=== PATIENT | female | born 1975 | race Caucasian/White ===

== ENCOUNTER 2019-08-29 20:25 | Emergency (ER) | payer MEDICAID, MEDICARE ==
[~2019-08-29] VITALS: Ht 175.3 cm; Wt 107.0 kg
[2019-08-29 20:33] VITALS: BP 134/94
[2019-08-29] MEDS ORDERED: HYDROcodone/acetaminophen 5mg/325mg tablet PO ONE (21:05)
[2019-08-29] MEDS ORDERED: ondansetron 4mg rapidly disintigrating tab PO ONE (21:05)
[2019-08-29] MEDS ORDERED: ketorolac trometh inj. 60 MG/2 ML VIAL IM ONE (21:20)
== END 2019-08-29 21:47 | disposition home or self-care (01) ==
LOC: ER 20:26
DX: M25.561 Pain in right knee (principal); Z98.0 Intestinal bypass and anastomosis status; Z98.890 Other specified postprocedural states; Z88.6 Allergy status to analgesic agent
CPT/HCPCS: 29505; 73564; 96372; 99283; J1885

== ENCOUNTER 2020-06-09 20:28 | Inpatient (IN) | payer MEDICAID ==
[~2020-06-09] VITALS: Ht 175.3 cm; Wt 101.8 kg
[2020-06-09] MEDS ORDERED: CefTRIAXone 2gm/D5W 50ml BAG 50 ML IV ONE (21:40)
[2020-06-09] MEDS ORDERED: ondansetron/PF 4mg/2ml inj IV ONE (21:40)
[2020-06-09] MEDS ORDERED: normal saline 1000ML IV soln IVB ONE (21:40)
[2020-06-09] MEDS ORDERED: vancomycin/NS 1 GM ADD-VANTAGE 250 ML IV ONE (21:40)
[2020-06-09] MEDS ORDERED: iohexol 300mg/ml 100ml inj. ONE (21:52)
[2020-06-09 22:14] LABS: BASOPHILS # (AUTO) 0.1 X10'3 (0-0.2); BASOPHILS % (AUTO) 0.8 % (0-1); EOSINOPHILS # (AUTO) 0.1 X10'3 (0-0.9); EOSINOPHILS % (AUTO) 1.8 % (0-6); HEMATOCRIT 34.5 % (35.0-45.0); HEMOGLOBIN 11.3 g/dl (12.0-16.0); LYMPHOCYTES # (AUTO) 1.4 X10'3 (1.1-4.8); LYMPHOCYTES % (AUTO) 18.8 % (21-51); MEAN CORPUSCULAR HEMOGLOBIN 28.4 PG (27.0-31.0); MEAN CORPUSCULAR HGB CONC 32.7 g/dL (33.0-36.5); MEAN CORPUSCULAR VOLUME 86.9 FL (78-98); MEAN PLATELET VOLUME 8.5 FL (7.4-10.4); MONOCYTES # (AUTO) 0.5 X10'3 (0-0.9); MONOCYTES % (AUTO) 6.4 % (2-12); NEUTROPHILS # (AUTO) 5.5 X10'3 (1.8-7.7); NEUTROPHILS % (AUTO) 72.2 % (42-75); PLATELET COUNT 264 X10'3 (140-440); RED BLOOD COUNT 3.97 X10'6 (4.20-5.60); RED CELL DISTRIBUTION WIDTH 16.3 % (11.5-14.5); WHITE BLOOD COUNT 7.6 X10'3 (4.5-11.0)
[2020-06-09 22:29] LABS: CLARITY,URINE CLEAR (Clear); COLOR,URINE YELLOW (Yellow); GLUCOSE, URINE NEGATIVE (Neg); KETONES,URINE TRACE mg/dl (Neg); LEUKOCYTE ESTERASE ,URINE NEGATIVE (Neg); NITRITES, URINE NEGATIVE (Neg); OCCULT BLOOD,URINE NEGATIVE (Neg); PH,URINE 5.5 (4.8-8.0); PROTEIN,URINE NEGATIVE (Neg); UROBILINOGEN,URINE 0.2 E.U/dL (0.2-1.0)
[2020-06-09 22:29] LABS: ALANINE AMINOTRANSFERASE 13 U/L (12-78); ALBUMIN 3.3 G/DL (3.4-5.0); ALBUMIN/GLOBULIN RATIO 0.7 (1.1-1.5); ALKALINE PHOSPHATASE 94 IU/L (46-116); ANION GAP 10 (8-16); ASPARTATE AMINO TRANSFERASE 11 U/L (10-37); BILIRUBIN,TOTAL 0.4 MG/DL (0.1-1.0); BLOOD UREA NITROGEN 7 MG/DL (7-18); CALCIUM 9.2 MG/DL (8.5-10.1); CHLORIDE 102 MMOL/L (99-107); CREATININE 0.78 MG/DL (0.40-0.90); GLUCOSE 95 MG/DL (70-104); MAGNESIUM 2.1 MG/DL (1.5-2.4); POTASSIUM 3.6 MMOL/L (3.5-5.1); SODIUM 139 MMOL/L (135-145); TOTAL CARBON DIOXIDE 27.1 MMOL/L (24-32); eGFR 80 ML/MIN
[2020-06-09 22:30] LABS: URINE HCG NEGATIVE (NEG)
[2020-06-09 22:31] LABS: UA COLLECTION TYPE CLN CATCH MIDSTREAM
--- NOTE | 2020-06-09 22:54 | NUR ---
RETURNED FROM CT. ZOSYN AND VANCOMYCIN INFUSING AND 1 LITER NS BOLUS.
[2020-06-09] MEDS ORDERED: ketorolac trometh. 30mg/ml inj. IV ONE (23:05)
--- NOTE | 2020-06-09 23:25 | NUR ---
dr allen at bedside and evaluating pt and updating her of ct read. he will contact our general surgon commission associate. Pt reports she was sent here from her PCP's at [facility] and she did text with the surgon in [place] who did the procedure who recommended she see her PCP and that she may have a seroma and may need it drained. Pt reports it is very difficult to get hold of this MD in [place].
--- NOTE | 2020-06-09 23:27 | NUR ---
Dr. Delgado talking with Pt and reports she will need admission and that Dr. Hill, wants pt to be admitted and will likely place a drain.
[2020-06-09] MEDS ORDERED: HYDR-3968 PO (23:33)
[2020-06-09] MEDS ORDERED: CYCL-1 PO (23:33)
[2020-06-09] MEDS ORDERED: ONDA8TAB65 PO (23:33)
[2020-06-09] MEDS: morphine 4 MG/ML inj SYRINge IV PRN (23:37)
[2020-06-09] MEDS ORDERED: magnesium 2GM in 50ml NS 50 ML IV PRN (23:55)
[2020-06-09] MEDS ORDERED: acetaminophen 325mg tablet PO PRN (23:55)
[2020-06-09] MEDS ORDERED: potassium Cl 20 mEq SR tablet PO PRN ×2 (23:55)
[2020-06-09] MEDS ORDERED: potassium Cl 40MEQ/1/2NS 520ml 520 ML IV PRN ×2 (23:55)
[2020-06-09] MEDS ORDERED: HYDROcodone/acetaminophen 5mg/325mg tablet PO PRN (23:55)
[2020-06-09] MEDS ORDERED: normal saline 1000ml 1,000 ML IV SCH (23:55)
[2020-06-09] MEDS ORDERED: magnesium Cl slow-release 64mg tablet PO PRN (23:55)
[2020-06-09] MEDS ORDERED: ondansetron/PF 4mg/2ml inj IV PRN (23:55)
[2020-06-09] MEDS ORDERED: morphine 2 MG/ML inj. syringe IV PRN (23:55)
[2020-06-09] MEDS ORDERED: magnesium 4gm in 100ml NS 100 ML IV PRN (23:55)
[2020-06-10 02:39] LABS: BASOPHILS # (AUTO) 0.1 X10'3 (0-0.2); BASOPHILS % (AUTO) 0.8 % (0-1); EOSINOPHILS # (AUTO) 0.2 X10'3 (0-0.9); EOSINOPHILS % (AUTO) 2.4 % (0-6); HEMATOCRIT 32.1 % (35.0-45.0); HEMOGLOBIN 10.5 g/dl (12.0-16.0); LYMPHOCYTES # (AUTO) 1.6 X10'3 (1.1-4.8); LYMPHOCYTES % (AUTO) 23.3 % (21-51); MEAN CORPUSCULAR HEMOGLOBIN 28.5 PG (27.0-31.0); MEAN CORPUSCULAR HGB CONC 32.7 g/dL (33.0-36.5); MEAN CORPUSCULAR VOLUME 87.2 FL (78-98); MEAN PLATELET VOLUME 8.5 FL (7.4-10.4); MONOCYTES # (AUTO) 0.5 X10'3 (0-0.9); MONOCYTES % (AUTO) 7.2 % (2-12); NEUTROPHILS # (AUTO) 4.4 X10'3 (1.8-7.7); NEUTROPHILS % (AUTO) 66.3 % (42-75); PLATELET COUNT 223 X10'3 (140-440); RED BLOOD COUNT 3.68 X10'6 (4.20-5.60); RED CELL DISTRIBUTION WIDTH 15.8 % (11.5-14.5); WHITE BLOOD COUNT 6.7 X10'3 (4.5-11.0)
[2020-06-10 02:50] LABS: ALBUMIN 2.8 G/DL (3.4-5.0); ANION GAP 8 (8-16); BLOOD UREA NITROGEN 6 MG/DL (7-18); BUN/CREATININE RATIO 9.2 (6.6-38.0); CALCIUM 8.5 MG/DL (8.5-10.1); CHLORIDE 107 MMOL/L (99-107); CREATININE 0.65 MG/DL (0.40-0.90); GLUCOSE 92 MG/DL (70-104); MAGNESIUM 2.1 MG/DL (1.5-2.4); POTASSIUM 3.7 MMOL/L (3.5-5.1); SODIUM 140 MMOL/L (135-145); TOTAL CARBON DIOXIDE 24.8 MMOL/L (24-32); eGFR > 90 ML/MIN
[2020-06-10] MEDS: morphine 4 MG/ML inj SYRINge IV PRN (04:45)
--- NOTE | 2020-06-10 04:50 | NUR ---
AWAITING IPA, VSS, PAIN INCREASING TO ABDOMEN 7 OUT OF 10. JUST GIVEN MORPHINE AND ZOFRAN.
--- NOTE | 2020-06-10 05:20 | NUR ---
IPA 344A. REPORT TO LIGIA MIX. PT WITH STABLE VS.
--- NOTE | 2020-06-10 05:25 | NUR ---
Received report from Angela STRONG in the ER. Pt arrived on the unit via wheelchair with 1 bag of personal belongings, VSS, R/A and IV was SL. Pt had no signs of distress, will continue to monitor.
[2020-06-10 05:44] VITALS: BP 105/73
--- NOTE | 2020-06-10 06:08 | NUR ---
Problems reprioritized. Patient report given, questions answered & plan of care reviewed with Bernice STROGN.
--- NOTE | 2020-06-10 06:12 | NUR ---
Patient in room [facility]. I have received report from Emely STRONG and had the opportunity to ask questions and assume patient care.
[2020-06-10 08:00] VITALS: BP 108/71
[2020-06-10] MEDS ORDERED: docusate sod 100mg capsule PO SCH (08:00)
[2020-06-10] MEDS ORDERED: K and/or MAG REPLACEMENT MC SCH (08:00)
[2020-06-10 10:00] VITALS: BP 121/78
[2020-06-10] MEDS ORDERED: VANCOmycin 1250MG/NS 250ml Bag 250 ML IV SCH (10:00)
[2020-06-10 10:20] VITALS: BP 120/66
--- NOTE | 2020-06-10 11:30 | NUR ---
Student documentation: I have reviewed and agree with all interventions, assessments performed and documented by Janneth Kwon.
[2020-06-10 12:00] VITALS: BP 131/87
--- NOTE | 2020-06-10 12:22 | NUR ---
PAGER ID: [phone] MESSAGE: Aliza [place] 344A- Pt does not have a diet order. Can we get an order plz. She is hungry. Thank you Bernice [phone]
--- NOTE | 2020-06-10 17:00 | NUR ---
Pt DC to home. Pt is A & O x4 and in no apparent distress. Pt verbalizes understanding of all DC orders. Pt understands the importance of following up with PCP to get a followup CT to make sure that abscess does not return. Pt also is to get blood test to make sure her anemia is getting better. pt was supposed to stay until tomorrow but she felt very good and decided to go home. agreed to let her know. Pt has not have any pain since she arrived this am. She has not had any medications. She decided to drive herself home. Pt insisted on walking to the front. A staff member walked with her to the front where she got in her vehicle and drove herself home. No meds were prescribed or given.
[2020-06-10] MEDS ORDERED: lactobacillus rhamnosus 10,000 MMU CELLS/CAPSULE PO SCH (20:00)
[2020-06-11] MEDS ORDERED: VANCOMYCIN LEVEL IV ONE (21:30)
== END 2020-06-10 16:58 | disposition home or self-care (01) | DRG 813 ==
LOC: ER 20:29 → ED HOLD 23:51 → SUR 3N 06-10 05:27
PROVIDERS: ADMIT Internal Medicine; ATTEND Family Medicine
PROC: 0W9F3ZZ Drainage of Abdominal Wall, Percutaneous Approach (ICD-10-PCS; principal; 2020-06-10)
PROC: BW40ZZZ Ultrasonography of Abdomen (ICD-10-PCS; 2020-06-10)
DX: K91.872 Postprocedural seroma of a digestive system organ or structure following a digestive system procedure (principal); Y83.8 Other surgical procedures as the cause of abnormal reaction of the patient, or of later complication, without mention of misadventure at the time of the procedure; Y73.8 Miscellaneous gastroenterology and urology devices associated with adverse incidents, not elsewhere classified; D64.9 Anemia, unspecified; L03.311 Cellulitis of abdominal wall; Z98.82 Breast implant status; Y92.89 Other specified places as the place of occurrence of the external cause; Z98.84 Bariatric surgery status; Z88.8 Allergy status to other drugs, medicaments and biological substances; Z79.899 Other long term (current) drug therapy
CPT/HCPCS: 10030; 36415; 71260; 74177; 80048; 80053; 81003; 81025; 83605; 83735; 84145; 85025; 87040; 87081; 96365; 99285; G0378; J0696; J1885; J2270; J2405; J3370; J7030; Q9967

== ENCOUNTER 2020-07-06 07:54 | Emergency (ER) | payer MEDICAID ==
[~2020-07-06] VITALS: Ht 175.3 cm; Wt 102.7 kg
[~2020-07-06 07:54] MED LIST: CYCL-1 PO; HYDR-3968 PO; ONDA8TAB65 PO
[2020-07-06 07:56] VITALS: BP 121/80
== END 2020-07-06 08:47 | disposition home or self-care (01) ==
LOC: ER 07:55
DX: S30.1XXA Contusion of abdominal wall, initial encounter (principal); Z98.890 Other specified postprocedural states; Z88.8 Allergy status to other drugs, medicaments and biological substances; Z79.899 Other long term (current) drug therapy; X58.XXXA Exposure to other specified factors, initial encounter; Y93.89 Activity, other specified; Y92.89 Other specified places as the place of occurrence of the external cause; Y99.8 Other external cause status
CPT/HCPCS: 43239; 45380; 99152; 99153; 99281; 99285; A4620; J7040

== ENCOUNTER 2020-10-15 09:57 | Emergency (ER) | payer MEDICAID ==
[~2020-10-15] VITALS: Ht 175.3 cm; Wt 105.0 kg
[2020-10-15 10:34] LABS: BASOPHILS % (AUTO) 0.4 % (0-1); EOSINOPHILS # (AUTO) 0.1 X10'3 (0-0.9); EOSINOPHILS % (AUTO) 1.3 % (0-6); HEMATOCRIT 37.7 % (35.0-45.0); HEMOGLOBIN 12.3 g/dl (12.0-16.0); LYMPHOCYTES # (AUTO) 1.6 X10'3 (1.1-4.8); LYMPHOCYTES % (AUTO) 25.3 % (21-51); MEAN CORPUSCULAR HEMOGLOBIN 27.4 PG (27.0-31.0); MEAN CORPUSCULAR HGB CONC 32.7 g/dL (33.0-36.5); MEAN CORPUSCULAR VOLUME 83.8 FL (78-98); MEAN PLATELET VOLUME 8.9 FL (7.4-10.4); MONOCYTES # (AUTO) 0.4 X10'3 (0-0.9); MONOCYTES % (AUTO) 6.4 % (2-12); NEUTROPHILS # (AUTO) 4.2 X10'3 (1.8-7.7); NEUTROPHILS % (AUTO) 66.6 % (42-75); PLATELET COUNT 205 X10'3 (140-440); RED CELL DISTRIBUTION WIDTH 16.5 % (11.5-14.5); WHITE BLOOD COUNT 6.3 X10'3 (4.5-11.0)
[2020-10-15 10:41] LABS: CLARITY,URINE CLEAR (Clear); COLOR,URINE YELLOW (Yellow); GLUCOSE, URINE NEGATIVE (Neg); KETONES,URINE NEGATIVE (Neg); LEUKOCYTE ESTERASE ,URINE NEGATIVE (Neg); NITRITES, URINE NEGATIVE (Neg); OCCULT BLOOD,URINE NEGATIVE (Neg); PROTEIN,URINE NEGATIVE (Neg)
[2020-10-15 10:43] LABS: URINE HCG NEGATIVE (NEG)
[2020-10-15 10:49] LABS: UA COLLECTION TYPE CLN CATCH MIDSTREAM
[2020-10-15 10:50] LABS: ALANINE AMINOTRANSFERASE 22 U/L (12-78); ALBUMIN 3.5 G/DL (3.4-5.0); ALBUMIN/GLOBULIN RATIO 0.8 (1.1-1.5); ALKALINE PHOSPHATASE 97 IU/L (46-116); ANION GAP 9 (8-16); ASPARTATE AMINO TRANSFERASE 21 U/L (10-37); BILIRUBIN,TOTAL 0.6 MG/DL (0.1-1.0); BLOOD UREA NITROGEN 10 MG/DL (7-18); BUN/CREATININE RATIO 11.9 (6.6-38.0); CALCIUM 8.5 MG/DL (8.5-10.1); CHLORIDE 104 MMOL/L (99-107); CREATININE 0.84 MG/DL (0.40-0.90); GLUCOSE 90 MG/DL (70-104); POTASSIUM 3.9 MMOL/L (3.5-5.1); SODIUM 138 MMOL/L (135-145); TOTAL CARBON DIOXIDE 24.8 MMOL/L (24-32); TOTAL PROTEIN 7.8 G/DL (6.4-8.2); eGFR 73 ML/MIN
[2020-10-15] MEDS ORDERED: iohexol 350MG/ML 100ml bottle IV ONE (11:49)
[2020-10-15 13:16] VITALS: BP 132/71
== END 2020-10-15 13:48 | disposition home or self-care (01) ==
LOC: ER 09:58
DX: N64.4 Mastodynia (principal); R10.32 Left lower quadrant pain; R10.31 Right lower quadrant pain; Z98.890 Other specified postprocedural states; Z88.6 Allergy status to analgesic agent; Z79.899 Other long term (current) drug therapy
CPT/HCPCS: 36415; 71260; 74177; 80053; 81003; 81025; 85025; 99285; Q9967

== ENCOUNTER 2020-11-03 10:17 | Emergency (ER) | payer MEDICAID, OTHER ==
[~2020-11-03] VITALS: Ht 175.3 cm; Wt 104.1 kg
[2020-11-03 15:04] VITALS: BP 146/89
== END 2020-11-03 15:06 | disposition home or self-care (01) ==
LOC: ER 10:18
DX: M25.512 Pain in left shoulder (principal); R20.2 Paresthesia of skin; Z79.82 Long term (current) use of aspirin; Z79.899 Other long term (current) drug therapy; Z98.890 Other specified postprocedural states; V99.XXXA Unspecified transport accident, initial encounter; Y93.89 Activity, other specified; Y92.89 Other specified places as the place of occurrence of the external cause; Y99.8 Other external cause status
CPT/HCPCS: 99282

== ENCOUNTER 2021-09-11 20:15 | Emergency (ER) | payer MEDICAID, OTHER ==
[~2021-09-11] VITALS: Ht 175.3 cm; Wt 105.5 kg
[~2021-09-11 20:15] MED LIST changes: +ONDA-104 PO; -ONDA8TAB65 PO
[2021-09-11 20:19] VITALS: BP 136/98
--- NOTE | 2021-09-11 20:57 | NUR ---
pt asked how long till the dr comes. pt stated Im just going to go". pt seen leaving the er by staff
== END 2021-09-13 07:00 | disposition left against medical advice (07) ==
LOC: ER 09-12 05:53
DX: M25.512 Pain in left shoulder (principal); Z53.21 Procedure and treatment not carried out due to patient leaving prior to being seen by health care provider

== ENCOUNTER 2021-09-23 15:07 | Emergency (ER) | payer MEDICAID ==
[~2021-09-23] VITALS: Ht 175.3 cm; Wt 105.0 kg
[2021-09-23 15:59] VITALS: BP 132/85
[2021-09-23] MEDS ORDERED: LIDOcaine 5% patch TP STA (17:00)
[2021-09-23] MEDS ORDERED: HYDR-3964 PO (17:05)
== END 2021-09-23 17:39 | disposition home or self-care (01) ==
LOC: ER 15:08
DX: S80.212A Abrasion, left knee, initial encounter (principal); S80.211A Abrasion, right knee, initial encounter; W19.XXXA Unspecified fall, initial encounter; Y93.89 Activity, other specified; Y92.89 Other specified places as the place of occurrence of the external cause; Y99.8 Other external cause status; Z88.6 Allergy status to analgesic agent; Z79.899 Other long term (current) drug therapy
CPT/HCPCS: 71045; 73030; 99284

== ENCOUNTER 2022-12-24 10:07 | Emergency (ER) | payer MEDICAID ==
[~2022-12-24] VITALS: Ht 175.3 cm; Wt 93.2 kg
[2022-12-24 10:21] VITALS: BP 133/94; PULSE 87; RESP 16; TEMP 97.9; O2SAT 98
[2022-12-24] MEDS ORDERED: dexamethasone sod phosphate 10mg/ml inj PO STA (10:55)
[2022-12-24 11:33] LABS: STREP A SCREEN NEGATIVE (Neg)
[2022-12-24] MEDS ORDERED: OMEP40CA21 PO (11:39)
== END 2022-12-24 12:00 | disposition home or self-care (01) ==
LOC: ER 10:08
DX: J02.9 Acute pharyngitis, unspecified (principal); R05.9 Cough, unspecified; Z88.5 Allergy status to narcotic agent; Z79.899 Other long term (current) drug therapy; Z98.51 Tubal ligation status; Z98.82 Breast implant status
CPT/HCPCS: 87081; 87880; 99283; J1100

== ENCOUNTER 2024-02-06 22:33 | Emergency (ER) | payer MEDICAID ==
[~2024-02-06] VITALS: Ht 175.3 cm; Wt 93.0 kg
[2024-02-06] MEDS ORDERED: PHEN-557 PO (23:16)
[2024-02-06] MEDS ORDERED: SERT-433 PO (23:16)
[2024-02-06 23:23] LABS: BASOPHILS % (AUTO) 0.5 % (0-1); EOSINOPHILS # (AUTO) 0.1 X10'3 (0-0.9); EOSINOPHILS % (AUTO) 1.7 % (0-6); HEMATOCRIT 41.4 % (35.0-45.0); HEMOGLOBIN 13.8 g/dl (12.0-16.0); LYMPHOCYTES # (AUTO) 2.1 X10'3 (1.1-4.8); LYMPHOCYTES % (AUTO) 28.6 % (21-51); MEAN CORPUSCULAR HEMOGLOBIN 30.6 PG (27.0-31.0); MEAN CORPUSCULAR HGB CONC 33.2 g/dL (33.0-36.5); MEAN CORPUSCULAR VOLUME 92.2 FL (78-98); MEAN PLATELET VOLUME 8.6 FL (7.4-10.4); MONOCYTES # (AUTO) 0.4 X10'3 (0-0.9); MONOCYTES % (AUTO) 6.2 % (2-12); NEUTROPHILS # (AUTO) 4.5 X10'3 (1.8-7.7); PLATELET COUNT 184 X10'3 (140-440); RED CELL DISTRIBUTION WIDTH 14.9 % (11.5-14.5); WHITE BLOOD COUNT 7.2 X10'3 (4.5-11.0)
[2024-02-06 23:44] LABS: ALBUMIN 3.5 G/DL (3.4-5.0); ANION GAP 12 (8-16); BLOOD UREA NITROGEN 10 MG/DL (7-18); BUN/CREATININE RATIO 11.5 (10.0-20.0); CALCIUM 8.5 MG/DL (8.5-10.1); CHLORIDE 104 MMOL/L (99-107); CREATININE 0.87 MG/DL (0.40-0.90); ETHANOL 219 MG/DL (<10); GLUCOSE 97 MG/DL (70-104); POTASSIUM 3.2 MMOL/L (3.5-5.1); SALICYLATE 1.3 MG/DL (4.0-20.0); SODIUM 139 MMOL/L (135-145); THYROID STIMULATING HORMONE 1.41 ulU/ml (0.34-4.50); TOTAL CARBON DIOXIDE 23.5 MMOL/L (24-32); eCRCL 83 ML/MIN; eGFR 69 ML/MIN
[2024-02-06 23:55] LABS: URINE AMPHETAMINE SCREEN NEGATIVE (Neg); URINE BARBITUATE SCREEN NEGATIVE (Neg); URINE BENZODIAZEPINES SCREEN NEGATIVE (Neg); URINE CANNABINOID SCREEN NEGATIVE (Neg); URINE COCAINE SCREEN NEGATIVE (Neg); URINE METHADONE SCREEN NEGATIVE (Neg); URINE OPIATE SCREEN NEGATIVE (Neg); URINE PHENCYCLIDINE SCREEN NEGATIVE (Neg)
[2024-02-06 23:57] LABS: BILIRUBIN,URINE NEGATIVE (Neg); CLARITY,URINE CLEAR (Clear); COLOR,URINE STRAW (Yellow); GLUCOSE, URINE NEGATIVE (Neg); KETONES,URINE NEGATIVE (Neg); LEUKOCYTE ESTERASE ,URINE NEGATIVE (Neg); NITRITES, URINE NEGATIVE (Neg); OCCULT BLOOD,URINE NEGATIVE (Neg); PROTEIN,URINE NEGATIVE (Neg); UROBILINOGEN,URINE 0.2 E.U/dL (0.2-1.0)
[2024-02-07 00:04] LABS: UA COLLECTION TYPE CLN CATCH MIDSTREAM
[2024-02-07 00:16] LABS: ACETAMINOPHEN < 2.0 UG/ML (10-30)
[2024-02-07 01:16] LABS: URINE HCG NEGATIVE (NEG)
[2024-02-07] MEDS: ondansetron 4mg rapidly disintigrating tab PO ONE (01:31)
[2024-02-07] MEDS: potassium Cl 20 mEq SR tablet PO STA (01:31)
[2024-02-07 06:04] VITALS: BP 108/64; PULSE 62; O2SAT 100
[2024-02-07] MEDS: sertraline 50mg tablet PO SCH (08:00)
[2024-02-07 09:55] VITALS: RESP 14
[2024-02-07 10:26] VITALS: TEMP 98
== END 2024-02-07 10:44 | disposition home or self-care (01) ==
LOC: ER 22:34
DX: R45.851 Suicidal ideations (principal); Z20.822 Contact with and (suspected) exposure to COVID-19; E87.6 Hypokalemia; F10.129 Alcohol abuse with intoxication, unspecified; Y90.9 Presence of alcohol in blood, level not specified; Z88.6 Allergy status to analgesic agent; Z88.8 Allergy status to other drugs, medicaments and biological substances; Z79.899 Other long term (current) drug therapy
CPT/HCPCS: 36415; 80048; 80305; 80320; 80329; 81003; 81025; 84443; 85025; 87811; 99285

== ENCOUNTER 2024-05-27 11:17 | Emergency (ER) | payer MEDICAID ==
[~2024-05-27] VITALS: Ht 175.3 cm; Wt 110.2 kg
[~2024-05-27 11:17] MED LIST changes: +PHEN-557 PO; +SERT-433 PO
[2024-05-27 11:24] VITALS: BP 156/90; PULSE 69; TEMP 98; O2SAT 99
[2024-05-27 14:38] VITALS: RESP 16
[2024-05-27] MEDS: ketorolac trometh 30MG/ML vial 30 MG/ML VIAL IM ONE (14:38)
[2024-05-27] MEDS: dexamethasone sod phosphate 10mg/ml inj IM STA (14:38)
[2024-05-27] MEDS ORDERED: PRED20TA PO (14:59)
== END 2024-05-27 14:55 | disposition home or self-care (01) ==
LOC: ER 11:17
DX: M76.62 Achilles tendinitis, left leg (principal); Z98.84 Bariatric surgery status; Z98.890 Other specified postprocedural states; Z79.82 Long term (current) use of aspirin
CPT/HCPCS: 73610; 96372; 99284; J1100; J1885; L4360

== ENCOUNTER 2024-08-21 18:10 | Emergency (ER) | payer MEDICAID ==
[~2024-08-21] VITALS: Ht 175.3 cm; Wt 108.8 kg
[~2024-08-21 18:10] MED LIST changes: -PHEN-557 PO; +PHEN37.511 PO
[2024-08-21 18:14] VITALS: TEMP 97.1
[2024-08-21] MEDS: ondansetron 4mg rapidly disintigrating tab PO ONE (19:34)
[2024-08-21] MEDS: acetaminophen 325mg tablet PO ONE (19:34)
[2024-08-21 20:14] LABS: URINE HCG NEGATIVE (NEG)
[2024-08-21 22:27] VITALS: BP 135/83; PULSE 67; RESP 16; O2SAT 98
== END 2024-08-21 23:11 | disposition home or self-care (01) ==
LOC: ER 18:10
DX: S06.0X1A Concussion with loss of consciousness of 30 minutes or less, initial encounter (principal); Z88.6 Allergy status to analgesic agent; Z79.899 Other long term (current) drug therapy; Z98.890 Other specified postprocedural states; W06.XXXA Fall from bed, initial encounter; Y93.89 Activity, other specified; Y92.89 Other specified places as the place of occurrence of the external cause; Y99.8 Other external cause status
CPT/HCPCS: 70450; 81025; 99284

== ENCOUNTER 2025-03-21 12:44 | Emergency (ER) | payer MEDICAID ==
[~2025-03-21] VITALS: Ht 175.3 cm; Wt 104.5 kg
[2025-03-21 12:49] VITALS: TEMP 97.9
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
[2025-03-21 14:15] VITALS: BP 119/97; PULSE 73; RESP 16; O2SAT 98
--- NOTE | 2025-03-21 14:56 | RADIOLOGY REPORT ---
EXAM: DI ANKLE, COMPLETE(3VW MIN) INDICATION: ANKLE PAIN TECHNIQUE: 3 views of the left ankle COMPARISON: DI ANKLE, COMPLETE(3VW MIN) on DOS: 05/27/24 FINDINGS/IMPRESSION: No radiographic evidence of an acute osseous abnormality. There is no the appearance of distal Achilles tendon thickening with soft tissue edematous appearance and postsurgical changes along the posterior superior calcaneal tuberosity. Sequelae of prior posterior calcaneal resection. Diffusely decreased bone mineral density. No tibiotalar joint effusion.
[2025-03-21] MEDS ORDERED: HYDR-3965 PO (15:02)
== END 2025-03-21 15:11 | disposition home or self-care (01) ==
LOC: ER 12:44
DX: S93.402A Sprain of unspecified ligament of left ankle, initial encounter (principal); Z88.6 Allergy status to analgesic agent; Z79.899 Other long term (current) drug therapy; Z98.890 Other specified postprocedural states; X58.XXXA Exposure to other specified factors, initial encounter; Y93.89 Activity, other specified; Y92.89 Other specified places as the place of occurrence of the external cause; Y99.8 Other external cause status
CPT/HCPCS: 73610; 99283; L4360